=== PATIENT | female | born 1955 | race Hispanic/Latino ===

== ENCOUNTER 2017-06-12 15:13 | Outpatient (CLI) | payer BC ==
--- NOTE | 2017-06-12 16:09 | XRay Report ---
RIGHT TIBIA/FIBULA: Pain. AP and lateral views of the right tibia/fibula demonstrate normal mineralization and contours for this patient's age. No destructive changes are noted and the adjacent soft tissues are normal. IMPRESSION: Normal right tibia/fibula.
== END 2017-06-12 15:14 | disposition home or self-care (01) ==
LOC: SPVIMAG 15:13
PROVIDERS: ATTEND Orthopaedic Surgery Sports Medicine
DX: M79.604 Pain in right leg (principal)